=== PATIENT | male | born 1995 | race Caucasian/White ===

== ENCOUNTER 2022-06-17 17:18 | Outpatient (REF) | payer SELFPAY ==
[2022-06-17 21:07] LABS: Source Nasal/Nares
[2022-06-17 21:19] LABS: Abs Immature Grans 0.04 10^3/uL (0.0-0.06); Absolute Basophil Count 0.02 10^3/uL (0.0-0.2); Absolute Lymphocyte Count 0.42 10^3/uL (1.2-3.4); Absolute Monocyte Count 0.56 10^3/uL (0.1-0.8); Absolute Neutrophil Count 9.38 10^3/uL (1.2-6.7); Basophils % 0.2; HCT 46.6 % (40.0-50.0); Immature Grans % 0.4; MCH 29.4 pg (27.0-33.0); MCHC 34.3 % (32.0-36.0); MCV 86 fL (80-95); MPV 11.2 fL (8.0-11.0); Monocytes % 5.4; Platelet Count 219 10^3/uL (130-400); RBC 5.45 10^6/uL (4.36-5.78); RDW 12.8 % (11.8-14.1); RDW-SD 39.2 fL; WBC 10.42 10^3/uL (4.4-10.8)
[2022-06-17 21:32] LABS: ALT 58 U/L (16-63); AST 20 U/L (15-37); Albumin 4.4 g/dL (3.4-5.0); Alkaline Phosphatase 70 U/L (46-116); Anion Gap 9.8 mmol/L (3-11); BUN 23 mg/dL (7-18); Bilirubin, Total 1.4 mg/dL (0.2-1.0); CO2 27.2 mmol/L (21.0-32.0); CREATININE 1.1 mg/dL (0.70-1.30); Calcium 8.9 mg/dL (8.5-10.1); Chloride 102 mmol/L (98-107); Estimated GFR 94.36 (mL/min/1.73m2); Glucose 113 mg/dL (74-106); Lipase 21 U/L (16-77); Potassium 3.8 mmol/L (3.5-5.1); Sodium 139 mmol/L (136-145)
[2022-06-17 21:47] LABS: COVID-19 PCR Negative (Negative)
== END 2022-06-17 17:19 | disposition home or self-care (01) ==
LOC: LBN 17:18
PROVIDERS: Visit Provider Physician Assistant Medical
DX: R10.9 Unspecified abdominal pain (principal)
CPT/HCPCS: 80053; 83690; 87635; 85025; 87177